=== PATIENT | male | born 1965 | race Caucasian/White ===

== ENCOUNTER 2018-01-28 15:39 | Emergency (ER) | payer BC ==
[2018-01-28] MEDS ORDERED: BUFFERED LIDOCAINE 10 ML SYRINGE SUBQ STA (15:59)
[2018-01-28] MEDS ORDERED: TETANUS/DIPHTHERIA/PERTUSSIS 0.5 ML SYRINGE IM ONE (15:59)
--- NOTE | 2018-01-28 16:01 | ED Physician Documentation ---
PD HPI UPPER EXT INJURY - Stated complaint Stated Complaint: DOG BITE - Chief complaint Chief Complaint: Laceration - History obtained from History obtained from: Patient - History of Present Illness Location: Other (Right-handed gentleman with unknown tetanus status was breaking up a fight between his own and another dog just prior to arrival near home in [place] and has multiple cuts and punctures over the left hand. No other injuries.) Review of Systems Constitutional: denies: Fever, Chills Cardiac: reports: Reviewed and negative Respiratory: reports: Reviewed and negative GI: reports: Reviewed and negative PD PAST MEDICAL HISTORY - Past Medical History Neuro: None Endocrine/Autoimmune: None - Past Surgical History Past Surgical History: No - Present Medications Home Medications: Ambulatory Orders Medication Instructions Recorded Confirmed FLUoxetine [PROzac] 10 mg 10/05/16 Mometasone Furoate [Nasonex] 17 gm NS DAILY 10/05/16 10/05/16 Amox/Clav 875/125 [Augmentin] 1 each PO Q12H #14 tablet 01/28/18 Levothyroxine [Synthroid] 20 mcg PO QDAC 01/28/18 01/28/18 - Allergies Allergies/Adverse Reactions: Allergies Allergy/AdvReac Type Severity Reaction Status Date / Time No Known Drug Allergies Allergy Verified 01/28/18 15:48 - Social History Does the pt smoke?: No Smoking Status: Never smoker - Immunizations Immunizations are current?: Yes PD ED PE NORMAL - Vitals Vital signs reviewed: Yes - General General: Alert and oriented X 3, No acute distress - Extremities Extremities: Other (There is a 2 cm laceration on the ulnar side of the dorsal hand proximal to the fifth MCP and another smaller one just distal that. There are multiple punctures about the left ring finger. There is a 1-1/2 cm laceration over the dorsum of the left middle finger at the level of the PIP and there is a little lac near the medial nailbed of the 4th finger.) - Neuro Neuro: Alert and oriented X 3, Normal speech Results - Vitals Vitals: Vital Signs - 24 hr 01/28/18 15:44 Temperature 36.8 C Heart Rate 72 Respiratory 12 Rate Blood Pressure 135/67 H O2 Saturation 99 Oxygen O2 Source Room air Procedures - Laceration (location) L hand Length in cm: 3 Wound type: Other (1 1cm lac in the middle finger, NVI and 1 2cm lac prox to 5th MCP dorsal hand) Neurovascular status: Sensory intact, Motor intact, Vascular intact Tendon involvement: Tendon intact Anesthesia: Lidocaine 1% Wound Preparation: Hibiclens, Irrigated copiously NS Skin layer closure: Nylon, Size #-0 - enter number (4-0), Sutures - enter # (5, 2 in the middle finger and 3 in the dorsal hand) Other: Tetanus booster given Complexity: Simple Departure - Departure Disposition: 01 Home, Self Care Clinical Impression: Dog bite, hand Qualifiers: Encounter type: initial encounter Laterality: left Qualified Code(s): S61.452A - Open bite of left hand, initial encounter; W54.0XXA - Bitten by dog, initial encounter; W54.0XXA - Bitten by dog, initial encounter Record reviewed to determine appropriate education?: Yes Instructions: ED Laceration Hand Prescriptions: Amox/Clav 875/125 [Augmentin] 1 each PO Q12H #14 tablet Comments: Come back for any signs of infection which would include: Redness, swelling, drainage, increased pain, or fevers. Follow-up with your physician in 14 days for suture removal. Your blood pressure was elevated today on check into the emergency department. This does not mean that you have hypertension, it is a common phenomenon to come to the emergency department and have elevated blood pressure. I recommend that you see your primary care physician within the week to have it rechecked when you are feeling better.
[2018-01-28] MEDS ORDERED: AMOX/CLAV 875 MG/125 MG TABLET PO STA (16:26)
--- NOTE | 2018-01-28 16:45 | XRAY Report ---
EXAM: LEFT HAND RADIOGRAPHY EXAM DATE: 01/28/2018 04:38 PM. CLINICAL HISTORY: Dog bite to left hand. Lacerations and pain to fourth digit. COMPARISON: None. TECHNIQUE: 3 views. 4 films. FINDINGS: Bones: Normal. No fractures or bone lesions. Joints: Normal. No subluxations. Soft Tissues: Normal. No soft tissue swelling. No radiopaque foreign body. IMPRESSION: Normal left hand radiography. [facility] Referring Provider Line: [phone] SITE ID: [id number]
[2018-01-28 17:12] VITALS: BP 144/73
== END 2018-01-28 17:11 | disposition home or self-care (01) ==
LOC: ED 15:39
DX: S61.452A Open bite of left hand, initial encounter (principal); S61.253A Open bite of left middle finger without damage to nail, initial encounter; W54.0XXA Bitten by dog, initial encounter; Y92.009 Unspecified place in unspecified non-institutional (private) residence as the place of occurrence of the external cause; Z23 Encounter for immunization; R03.0 Elevated blood-pressure reading, without diagnosis of hypertension
CPT/HCPCS: 12002; 73130; 90471; 90715; 99283; A9270

== ENCOUNTER 2018-08-31 13:03 | Outpatient (CLI) | payer BC ==
--- NOTE | 2018-09-02 09:50 | XRAY Report ---
Reason: DYSPHAGIA Procedure Date: 08/31/2018 Accession Number: [id number] / [id number] Procedure: FL - Modified Barium Swallow W/SP CPT Code: FULL RESULT: EXAM: MODIFIED BARIUM SWALLOW EXAM DATE: 08/31/2018 01:45 PM. CLINICAL HISTORY: Dysphagia. COMPARISON: None. TECHNIQUE: Under the direction of speech pathology, patient swallowed various consistencies of barium under lateral fluoroscopic observation of the neck. Fluoroscopy Time: 33 seconds. Number of Images: 23. FINDINGS: Swallowing Mechanism: Normal oral phase and swallowing reflex. Airway Protection: Normal epiglottic motion. No episodes of tracheal penetration or aspiration with all consistencies of barium. Pharynx: Normal. No significant vallecular or piriform sinus contrast pooling. Other: None. IMPRESSION: Normal modified barium swallow. No aspiration identified. [facility]
== END 2018-08-31 13:04 | disposition home or self-care (01) ==
LOC: DI 13:03
PROVIDERS: ATTEND Neurological Surgery
DX: R13.10 Dysphagia, unspecified (principal)
CPT/HCPCS: 74230

== ENCOUNTER 2018-12-17 04:49 | Outpatient (CLI) | payer BC ==
--- NOTE | 2018-12-17 05:40 | Ultrasound Report ---
Reason: R INGUINAL HERNIA, REDUCABLE Procedure Date: 12/17/2018 Accession Number: [id number] / [id number] Procedure: US - Pelvic Limited or F/U CPT Code: FULL RESULT: EXAM: INGUINAL ULTRASOUND EXAM DATE: 12/17/2018 05:06 AM. CLINICAL HISTORY: R INGUINAL HERNIA, REDUCABLE. COMPARISON: None. TECHNIQUE: Real-time sonographic imaging of the inguinal canals and vascular structures, including color-flow, was performed by the assistant at surgery. Multiple benefits representative static images were saved for review. FINDINGS: Hernia: Fat-containing right inguinal hernia, with the hernia neck measuring 1.7 cm. No bowel herniation identified. Hernia is seen during Valsalva, and reduces post-Valsalva. Soft Tissues: Normal. No fluid collections or adenopathy. Other: None. IMPRESSION: Fat-containing right inguinal hernia. No evidence of bowel herniation. [facility]
== END 2018-12-17 04:50 | disposition home or self-care (01) ==
LOC: DI 04:49
PROVIDERS: ATTEND Family Medicine
DX: K40.90 Unilateral inguinal hernia, without obstruction or gangrene, not specified as recurrent (principal)
CPT/HCPCS: 76857

== ENCOUNTER 2019-01-17 11:56 | Day surgery (SDC) | payer BC ==
[~2019-01-17 11:56] MED LIST: BUPIVACAINE 0.5% PF 30 ML VIAL ONE
[2019-01-17] MEDS ORDERED: ceFAZolin 2 GM/50 ML 2 GM/50 ML BAG IV ONE (12:06)
[2019-01-17] MEDS ORDERED: LACTATED RINGERS 1,000 ML IV ONE ×2 (12:08→13:56)
--- NOTE | 2019-01-17 12:12 | ANESTHESIA ---
Pre-Anesthesia VS, & Labs - Diagnosis R inguinal hernia - Procedure R laparoscopic inguinal hernia repair, possible open Height 5 ft 9 in Body Mass Index 28.0 Height 5 ft 9 in Body Mass Index 28.0 - NPO >8 hours Home Medications and Allergies Home Medications: Ambulatory Orders Albuterol Sulfate [Proair Hfa Inhaler] 1 - 2 puffs INH Q4H PRN 01/05/19 Beclomethasone Dipropionate [Qvar Redihaler (40 mcg)] 2 puffs IH BID 01/05/19 Cyclobenzaprine [Flexeril] 10 mg PO TID PRN 01/05/19 LORazepam [Ativan] 0.5 mg PO ONCE PRN 01/05/19 Liothyronine [Cytomel] 5 mcg PO QDAC 01/05/19 Sildenafil Citrate [Viagra] 100 mg PO ONCE PRN 01/05/19 FLUoxetine [PROzac] 20 mg PO DAILY 10/05/16 Mometasone Furoate [Nasonex] 1 spray NS BID PRN 10/05/16 Albuterol Sulfate [Proair Hfa Inhaler] 1 - 2 puffs INH Q4H PRN 01/05/19 Beclomethasone Dipropionate [Qvar Redihaler (40 mcg)] 2 puffs IH BID 01/05/19 Cyclobenzaprine [Flexeril] 10 mg PO TID PRN 01/05/19 LORazepam [Ativan] 0.5 mg PO ONCE PRN 01/05/19 Liothyronine [Cytomel] 5 mcg PO QDAC 01/05/19 Sildenafil Citrate [Viagra] 100 mg PO ONCE PRN 01/05/19 Allergies/Adverse Reactions: Allergies Allergy/AdvReac Type Severity Reaction Status Date / Time latex Allergy swelling Verified 01/05/19 11:57 Anes History & Medical History - Anesthetic History Anesthesia Complications: reports: No previous complications Family history of Anesthesia Complications: Denies Family history of Malignant Hyperthermia: Denies - Medical History Cardiovascular: reports: None Pulmonary: reports: Asthma, Sleep apnea, CPAP use Gastrointestinal: reports: Ulcers Urinary: reports: Kidney stones Musculoskeletal: reports: Chronic back pain Endocrine/Autoimmune: reports: HyPOthyroidism Skin: reports: None Smoking Status: Never smoker - Surgical History Orthopedic: Rotator cuff repair, Arthroscopic surgery, Spine surgery Exam General: Alert, Oriented x3, Cooperative Dental: WNL Mouth Openin Fingerbreadth Neck Mobility: Reduced Mallampati classification: II Thyromental Distance: 4-6 cm Respiratory: Lungs clear, Normal breath sounds, No respiratory distress, No accessory muscle use Cardiovascular: Regular rate Neurological: Normal speech Mental/Cognitive Status: Alert/Oriented X3 Cognitive Status: Within normal limits Plan Anesthesia Type: General Consent for Procedure(s) Verified and Reviewed: Yes Code Status: Attempt Resuscitation ASA classification: 2-Mild systemic disease Is this case an emergency?: No
[2019-01-17] MEDS ORDERED: ePHEDrine 50 MG/ML VIAL IVP ONE (12:15)
[2019-01-17] MEDS ORDERED: ONDANSETRON 4 MG/2 ML VIAL IVP ONE (12:15)
[2019-01-17] MEDS ORDERED: LIDOCAINE-MPF 2% 5 ML VIAL IM ONE (12:15)
[2019-01-17] MEDS ORDERED: MIDAZOLAM 2 MG/2 ML VIAL IVP ONE (12:15)
[2019-01-17] MEDS ORDERED: DEXAMETHASONE 4 MG/ML VIAL IVP ONE (12:15)
[2019-01-17] MEDS ORDERED: fentaNYL 100 MCG/2 ML VIAL IVP ONE (12:15)
[2019-01-17] MEDS ORDERED: KETOROLAC 30 MG/ML VIAL IVP ONE (12:15)
[2019-01-17] MEDS ORDERED: PROPOFOL 200 MG/20 ML VIAL IVP ONE (12:15)
[2019-01-17] MEDS ORDERED: GLYCOPYRROLATE 1 MG/5 ML VIAL IVP ONE (12:15)
[2019-01-17] MEDS ORDERED: NEOSTIGMINE 1 MG/1 ML 10 ML MDV IVP ONE (12:15)
[2019-01-17] MEDS ORDERED: BUPIVACAINE 0.5% PF 30 ML VIAL SUBQ ONE ×2 (13:18→14:17)
[2019-01-17] MEDS ORDERED: ONDANSETRON 4 MG/2 ML VIAL IVP PRN (14:35)
[2019-01-17] MEDS ORDERED: HYDROmorphone 0.5 MG/0.5 ML SYRINGE IVP PRN (14:35)
[2019-01-17] MEDS ORDERED: HYDROcod/ACETAM 5/325 MG TABLET PO PRN (14:35)
--- NOTE | 2019-01-17 14:39 | OPERATIVE REPORT ---
Operative Report - General Procedure Date: 01/17/19 Planned Procedure: Laparoscopic right inguinal herniorrhaphy possible open right inguinal herniorrhaphy Pre-Op Diagnosis: Right inguinal hernia Procedure Performed: Laparoscopic (TEP) right inguinal herniorrhaphy and removal of right inguinal canal cord lipoma Post Op Diagnosis: Right indirect inguinal hernia and cord lipoma - Procedure Note Primary Surgeon: Jeffy Anthony MD Anesthesia Provider: Olvin Gallo CRNA and Steve Oquendo CRNA Anesthesia Technique: General ET tube, Local (30 mL of half percent Marcaine) IV Fluids (mL): 1,200 Estimated Blood Loss (mL): 20 Drain/Tube Type: Other (None.) Complications: None. - Other Other Information/Narrative: OPERATIVE DESCRIPTION/REPORT: After verbal and written informed consent was obtained detailing the risks of infection, bleeding requiring transfusion with its risks, nerve injury, and , and after I met with the patient confirming the surgery and the site of the surgery, the patient was brought to the operative suite and placed supine on the operating table. Great care was taken to avoid pressure points to prevent pressure necrosis or nerve injury. Monitoring devices were applied along with TEDs and pneumatic compressive stockings (to prevent DVT). The patient received preoperative antibiotics for surgical prophylaxis. Olvin Gallo CRNA and Steve Oquendo CRNA sedated and induced general anesthesia and provided anesthesia care for the entirety of the case (Steve Aquino completed). The patient was prepped and draped in the usual sterile manner. With the patient draped my initials were clearly visible. A "time in" then confirmed that the patient was identified with 3 identifiers (name, date and medical record number), the history and physical was in the chart, the signed consent confirming the procedure was in the chart, the patient was in the correct position, the aforementioned prophylactic measures were in place or given, we had the correct personnel and equipment to complete the procedure and that anesthesia, surgery and nursing were given an opportunity to express any concerns. With the agreement of everyone in the room, we proceeded with the operation. A transverse skin incision was made below and to the right of the umbilicus to a length of approximately 3 cm. The incision was carried through the subcutaneous tissue. Bleeders were cauterized. The right rectus sheath was identified and incised lateral to the midline. The preperitoneal space was then developed following insertion of a Spacemaker balloon, which was inflated under direct vision. The balloon would not inflate fully on the right hand side and in order to get the right side of the balloon to inflate additional pressure was used to the point where the balloon popped but it still did not dissect the right hand side. Following removal of the Spacemaker balloon, a #10 trocar was placed in the preperitoneal space and the preperitoneal space was insufflated with CO2 to a steady state pressure of 15 mmHg. A 5 mm 30 degree laparoscope was inserted in the preperitoneal space. Two #5 trocars were placed in the lower midline 5 cm and 10 cm away from the umbilical incision under direct vision and without incident. Landmarks including symphysis pubis, right and left Kota ligaments and right and left inferior epigastric vessels were identified. Dissection was then continued lateral to the transverse abdominis muscle bilaterally. The right side was addressed first. The internal ring was then explored for the presence of the indirect hernia sac and a very large cord lipoma and a relatively small indirect hernia sac were found. Exploration of the medial space showed no defect consistent with a direct hernia. A Covidien ProGrip right inguinal mesh (reference# [id number], lot# [id number], used by date 2021-07-01) was placed in the preperitoneal space and unrolled to cover the internal ring as well as the direct space. Great care was taken to ensure that the peritoneumas well as the large cord lipoma was swept down so that it could not "creep" behind the mesh and result in a recurrent hernia. The left side was then addressed. No direct nor indirect hernia was seen. 30 mL of 1/2% Marcaine was injected at all 3 port sites both deep and superficially under direct vision. The preperitoneal space was then deflated and during the deflation the mesh was watched to ensure that it was sandwiched nicely in place and did not change position. All trocars were withdrawn. The defect in the rectus sheath was closed with a running 0 Vicryl suture . The skin incisions were closed with subcuticular 4-0 Monocryl suture. The prep was washed off and Dermabond was applied at all the incisions. At this point a time out was performed that confirmed that all the counts were correct, the procedure that was performed, the blood loss, the IV fluids administered, and the patients condition. The patient's scrotum was evaluated to ensure that the testicles were well seated within the scrotum and that there was no swelling. The prep was washed off and Benzoin and Steristrips were applied. Having tolerated the procedure well, the patient was subsequently extubated and taken to recovery room in good and stable condition. [employer] disclaimer: This document was created in part using voice recognition technology. Because of the inherent limitations of the system ([employer] Dictate user manual states that the licensee understands that speech recognition is a statistical process and that recognition errors are inherent in the process), occasional same sounding word substitutions and grammatical errors do occur and persist despite proofreading. Please read this document for context.
[2019-01-17] MEDS ORDERED: HYDROcod/ACETAM 5/325 MG TABLET ONE (15:32)
[2019-01-17 16:47] VITALS: BP 123/78
== END 2019-01-17 11:57 | disposition home or self-care (01) ==
LOC: SDS 11:56
PROVIDERS: ATTEND Surgery
PROC: 0VBF4ZZ Excision of Right Spermatic Cord, Percutaneous Endoscopic Approach (ICD-10-PCS; 2019-01-17)
PROC: 0YU54JZ Supplement Right Inguinal Region with Synthetic Substitute, Percutaneous Endoscopic Approach (ICD-10-PCS; principal; 2019-01-17 12:43)
DX: K40.90 Unilateral inguinal hernia, without obstruction or gangrene, not specified as recurrent (principal); J45.909 Unspecified asthma, uncomplicated; G47.30 Sleep apnea, unspecified; E03.9 Hypothyroidism, unspecified; F32.9 Major depressive disorder, single episode, unspecified; F41.0 Panic disorder [episodic paroxysmal anxiety]; Z79.51 Long term (current) use of inhaled steroids
CPT/HCPCS: 49650; A9270; C1781; J0690; J7120

== ENCOUNTER 2019-04-12 10:58 | Emergency (ER) | payer BC ==
[2019-04-12 11:08] VITALS: BP 139/89
[2019-04-12] MEDS ORDERED: IPRATROPIUM/ALBUTEROL 3 ML NEB INH STA (11:36)
--- NOTE | 2019-04-12 12:02 | ED Physician Documentation ---
PD HPI DYSPNEA - Stated complaint Stated Complaint: SOA - Chief complaint Chief Complaint: Resp - History obtained from History obtained from: Patient - History of Present Illness Timing - onset: Yesterday Timing - onset during: Light activity Timing - duration: Hours (since last night) Timing - details: Abrupt onset (after mowing the lawn), Still present, Constant Inciting event(s): Exposure (ie smoke) (mowing the lawn) Improved by: Rest Worsened by: Coughing Associated symptoms: Cough, Wheezing. No: Fever, Hemoptysis, Chest pain / discomfort, Palpitations, Diaphoresis, Bilateral edema, Unilateral edema Similar symptoms before: Diagnosis (asthma) Recently seen: Not recently seen Review of Systems Ten Systems: 10 systems reviewed and negative Constitutional: denies: Fever, Chills Nose: denies: Congestion Throat: denies: Sore throat Cardiac: denies: Chest pain / pressure Respiratory: reports: Dyspnea, Cough, Wheezing Skin: reports: Reviewed and negative Musculoskeletal: reports: Reviewed and negative Neurologic: reports: Reviewed and negative PD PAST MEDICAL HISTORY - Past Medical History Past Medical History: Yes Cardiovascular: None Respiratory: Asthma, Sleep apnea, CPAP use Endocrine/Autoimmune: HyPOthyroidism GI: Ulcers : Kidney stones HEENT: Chronic vision loss Psych: Anxiety, Panic attacks, ADD/ADHD Musculoskeletal: Chronic back pain Derm: None - Past Surgical History Past Surgical History: No Ortho: Rotator cuff repair, Arthroscopic surgery, Spine surgery - Present Medications Home Medications: Ambulatory Orders Medication Instructions Recorded Confirmed FLUoxetine [PROzac] 20 mg PO DAILY 10/05/16 01/17/19 Mometasone Furoate [Nasonex] 1 spray NS BID PRN 10/05/16 01/05/19 Albuterol Sulfate [Proair Hfa 1 - 2 puffs INH Q4H PRN 01/05/19 01/05/19 Inhaler] Beclomethasone Dipropionate [Qvar 2 puffs IH BID 01/05/19 01/05/19 Redihaler (40 mcg)] Cyclobenzaprine [Flexeril] 10 mg PO TID PRN 01/05/19 01/17/19 LORazepam [Ativan] 0.5 mg PO ONCE PRN 01/05/19 01/17/19 Liothyronine [Cytomel] 5 mcg PO QDAC 01/05/19 01/17/19 Sildenafil Citrate [Viagra] 100 mg PO ONCE PRN 01/05/19 01/17/19 Benzonatate [Tessalon Perle] 100 - 200 mg PO TID PRN #30 capsule 04/12/19 - Allergies Allergies/Adverse Reactions: Allergies Allergy/AdvReac Type Severity Reaction Status Date / Time latex Allergy swelling Verified 04/12/19 11:07 - Social History Does the pt smoke?: No Smoking Status: Never smoker Does the pt drink ETOH?: Yes Does the pt have substance abuse?: No - Immunizations Immunizations are current?: Yes Immunizations: TDAP >10years/unknown PD ED PE NORMAL - Vitals Vital signs reviewed: Yes - General General: Alert and oriented X 3, No acute distress - HEENT HEENT: Atraumatic - Neck Neck: Supple, no meningeal sign, No JVD - Cardiac Cardiac: RRR, No murmur, No gallop, No rub - Respiratory Respiratory: No respiratory distress, Clear bilaterally - Abdomen Abdomen: Soft, Non distended - Male Male : Deferred - Rectal Rectal: Deferred - Derm Derm: Normal color, Warm and dry, No rash - Extremities Extremities: No edema - Neuro Neuro: Alert and oriented X 3 Eye Opening: Spontaneous Motor: Obeys Commands Verbal: Oriented GCS Score: 15 - Psych Psych: Normal mood, Normal affect Results - Vitals Vitals: Vital Signs - 24 hr 04/12/19 04/12/19 11:05 11:48 Temperature 36 C L Heart Rate 86 90 Respiratory 22 16 Rate Blood Pressure 139/89 H O2 Saturation 98 Oxygen O2 Source Room air PD MEDICAL DECISION MAKING - ED course Complexity details: considered differential, d/w patient, d/w family ED course: ddx- asthma, bronchitis, uri, allergic reaction, pneumonia, uri 53 y/o M with reported hx of asthma states worsening cough and wheezing after mowing lawn yesterday. took inhaler without relief. Given neb prior to my eval here in the ED and now feels better and has clear breath sounds. Stable vitals. Likely asthma exacerbation. Still has mild cough - given tessalon perles for cough. Pt has inhaler for home. One dose of dexamethasone given here. Departure - Departure Disposition: 01 Home, Self Care Clinical Impression: Cough variant asthma Condition: Stable Record reviewed to determine appropriate education?: Yes Instructions: Asthma Dc Follow-Up: Margarita Moody MD [Primary Care Provider] - As Needed Prescriptions: Benzonatate [Tessalon Perle] 100 - 200 mg PO TID PRN #30 capsule PRN Reason: Cough Comments: Take tessalon perles for cough. Use your inhaler as needed. Return to the ED if difficulty breathing or new concerning symptoms.
[2019-04-12] MEDS ORDERED: dexAMETHasone 4 MG TABLET PO STA (12:21)
[2019-04-12] MEDS ORDERED: CHERRY SYRUP 10 ML UDC PO ONE (12:26)
[2019-04-12] MEDS ORDERED: DEXAMETHASONE 10 MG/ML VIAL PO STA (12:26)
== END 2019-04-12 12:49 | disposition home or self-care (01) ==
LOC: ED 10:58
DX: J45.991 Cough variant asthma (principal); G47.30 Sleep apnea, unspecified
CPT/HCPCS: 94640; 99283; A9270; J8540

== ENCOUNTER 2019-04-18 14:18 | Outpatient (CLI) | payer BC ==
--- NOTE | 2019-04-18 14:39 | XRAY Report ---
Reason: FEVER,COUGHING,RHONCHI,CHEST PAIN,WHEEZING Procedure Date: 04/18/2019 Accession Number: [id number] / [id number] Procedure: XR - Chest 2 View X-Ray CPT Code: 75684 FULL RESULT: EXAM: CHEST RADIOGRAPHY EXAM DATE: 04/18/2019 02:26 PM. CLINICAL HISTORY: Fever and cough. COMPARISON: None. TECHNIQUE: 2 views. FINDINGS: Lungs/Pleura: No focal opacities evident. No pleural effusion. No pneumothorax. Normal volumes. Mediastinum: Heart and mediastinal contours are unremarkable. Other: Spinal fusion hardware is seen in the cervical spine region. IMPRESSION: No acute cardiopulmonary abnormality demonstrated. [facility]
== END 2019-04-18 14:19 | disposition home or self-care (01) ==
LOC: DI 14:18
PROVIDERS: ATTEND Naturopath
DX: R05 Cough (principal); R50.9 Fever, unspecified; R09.89 Other specified symptoms and signs involving the circulatory and respiratory systems; R07.9 Chest pain, unspecified; R06.2 Wheezing; J45.909 Unspecified asthma, uncomplicated
CPT/HCPCS: 71046

== ENCOUNTER 2019-10-16 13:30 | Outpatient (CLI) | payer BC ==
[2019-10-17 15:02] VITALS: BP 137/86
--- NOTE | 2019-10-17 15:02 | SLEEP CARE CONSULTATION ---
Information from patient questionnaire entered by Keila Ceja. I have reviewed and concur with the information entered by Keila Ceja. This document represents the service I personally performed and the decisions made by me, Goldie Eng MD, [facility]. History of Present Illness Reason for Visit: New patient, Previously diagnosed sleep apnea, sleep apnea on CPAP therapy Chief Complaint: reports: Other (yearly check up) Duration of Symptoms: many years Usual bedtime: 9 pm Time it takes to fall asleep: 60 mins Snores at night: Yes Observed to quit breathing while asleep: Yes Number of times waking at night: 3 with machine Reasons for waking at night: reports: Choking, Pain, Bathroom Toss, Turn, or Twitch while sleeping: Yes Recalls having dreams: No Usually gets out of bed at: 7 am Feels refreshed in the morning: No (with machine, yes) Morning headache: Yes (with out machine) Sleepy or fatigued during the day: Yes (with out machine) Ever fallen asleep while driving: Yes Takes day naps: Yes Dreams during day naps: No Prior sleep studies: Yes Year and Where: 2013? [facility] Additional HPI information: I had the pleasure of seeing Mr. Andrade today regarding obstructive sleep apnea- hypopnea. As you know, he is a 54 year old gentleman who was diagnosed with the sleep-disordered breathing at [facility] in Dec 2012. The AHI was 17 and jairo oxygen saturation was 85%. He was prescribed a CPAP device set at 5 15 cmH2O. He uses every night and all night. The compliance data show usage in 26 out of the past 30 nights, averaging 5.8 hours a night. The > 4 hour compliance rate for the past 30 days is 70%. The residual AHI is 0.7 and average air leak is 0.1 L/minute. He wears nasal pillows. He gets his supplies from [facility]. He finds the treatment very beneficial. 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 Patient is Single and lives in [place]. Have you smoked in the past 12 months: No Alcohol use: Yes Alcohol amount and frequency: 1-2 drinks 4 times a week Family History Family history of sleep disordered breathing: Yes Allergies and Home Medications Drug allergies reviewed: Yes Home medication list reviewed: Yes Allergy and home medication list: Meds: sildenafil, Nasonex, Cytomel, lorazepam, fluoxetine, cyclobenzaprine, Q- Hammad, and albuterol inhaler Allergies: Latex Review of Systems Weight gain over past 5 years: 25 Weight loss over past 5 years: 20 Cardiovascular: denies: high blood pressure, palpitations, chest pain, irregular heart rate or pulse, leg or foot swelling, have to sleep sitting up, other Respiratory: reports: chronic cough Gastrointestinal: reports: difficulty swallowing (eating turkey) Urinary: denies: incontinence, frequency, urgency, impotence, other Neurological: reports: headaches, fainting or unconsciousness Psychiatric: reports: Attention Deficit Hyperactivity, anxiety, depression Ear/Nose/Throat: reports: nasal congestion, sinus problems, hoarseness, injury to nose Endocrine: reports: sluggishness, too hot or cold Musculoskeletal: reports: joint pain, neck pain, back pain, joint swelling, muscle pain or cramping, mobility problems Immunologic: reports: sneezing, rash, itching, allergies to food or environment Physical Exam Vital signs obtained and entered by: Dr. Eng Blood Pressure: 137/86 Cuff size: regular Heart Rate: 86 O2 Saturation: 97 Height: 5 ft 8 in Weight: 205 lb Body Mass Index: 31.1 BMI Classification: Obesity Class 1 Neck circumference: 16 Mood/affect: normal HEENT: No craniofacial malformation Nostrils: patent to airflow Turbinates: normal Septum: midline Mouth and throat: normal Soft palate: normal Hard palate: normal Uvula: normal Uvula visualization: 100% Mallampati Class I Tongue: normal in size Tonsils: small Chin and jaw: normal size and position Neck: normal w/o lymphadenopathy or thyromegaly Heart: regular rate and rhythm Lungs: clear bilaterally Abdomen: soft, non-tender Extremities: no edema or clubbing Neurologic: intact, no focal deficits Impression and Plan IMPRESSION: 1. Obstructive Sleep Apnea-Hypopnea Syndrome, moderate, as previously diagnosed. The patient has had good treatment compliance. The current pressure setting appears effective and comfortable. The patient experiences improvement on the treatment. Because the CPAP is now older than the useful life of 5 years, I will order the patient a new one and make it an autoCPAP set between 5 and 15 cmH2O. Plan: 1. Prescription made for an autoCPAP, heated humidifier, and related supplies. 2. Try newer masks/nasal pillows, e.g. RespirCornerBlues DreamWear nasal cushion/pillows/Wisp nasal mask. 3. Attempt to lose weight. 4. Return for follow up after one month on the new machine. I spent 100% of this visit face to face with the patient with greater than 50% of this was spent time counseling the patient and coordination of care.
== END 2019-10-16 13:31 | disposition home or self-care (01) ==
LOC: SC 13:30
PROVIDERS: ATTEND Internal Medicine Pulmonary Disease
DX: G47.33 Obstructive sleep apnea (adult) (pediatric) (principal); E66.9 Obesity, unspecified; Z68.31 Body mass index [BMI] 31.0-31.9, adult
CPT/HCPCS: 99203; 99212

== ENCOUNTER 2021-02-07 14:07 | Outpatient (CLI) | payer BC | END 2021-02-07 14:08 | disposition home or self-care (01) | LOC: COV 14:07 | PROVIDERS: ATTEND Neurological Surgery | DX: Z01.812 Encounter for preprocedural laboratory examination (principal); Z20.822 Contact with and (suspected) exposure to COVID-19 ==

== ENCOUNTER 2021-03-03 09:28 | Outpatient (CLI) | payer BC ==
--- NOTE | 2021-03-04 23:23 | SLEEP CARE CONSULTATION ---
Information from patient questionnaire entered by Tan Black. I have reviewed and concur with the information entered by Tan Black. This document represents the service I personally performed and the decisions made by me, Goldie Eng MD, [facility]. History of Present Illness Service Date and Time: 03/03/2021927 Previous diagnosis: Moderate, Obstructive Sleep Apnea-Hypopnea Syndrome AHI: 17 Reason for follow up: annual (Last seen 10/2019) Equipment type: CPAP Equipment obtained from: [employer] Mask style: Nasal pillows Prior sleep studies: Yes Year and Where: 2012 [facility] HPI additional information: HPI: Mr. Andrade was diagnosed to have moderate obstructive sleep apnea-hypopnea syndrome and returns today for follow up of CPAP therapy. The patient purchased the device from [employer] who is unhappy with. He wears ResMed P30i nasal pillows. He uses the device nightly and all through the night. The compliance report shows that he uses the device 113 nights out of the past 180 nights, averaging 6.2 hours a night. The > 4 hour compliance rate for the past 180 days is 53% (the days he did not use the ResMed AirSense 10, he used his other machines). He complains of the nasal pillows hurting his nose. No particular problem with the device such as soreness on the face, dry nose, epistaxis, nasal congestion or headache. He thinks that the pressure of 5 - 15 cmH2O is comfortable. On the CPAP therapy he notices improvement in his sleep quality, and that he wakes up feeling fresher in the morning and more awake/alert during the day. [place] Sleepiness Scale score is 8. The average residual AHI is 0.6; and average air leak is 8.6 minutes a night. The 90th percentile pressure is 11.7 cmH2O. CPAP Compliance Data - Data Reviewed with Patient Average duration of nightly device use: 6 h 9 min Compliance rate %: 53 Current pressure setting (cmH2O): 5-15 Average residual AHI: 0.6 Subjective Missed days of use due to: reports: illness, travel Patient concerns: reports: mask discomfort (facial) Current pressure setting perceived as: comfortable Initial [place] Sleepiness Scale score: 11 (in 2019) Current [place] Sleepiness Scale score: 8 Allergies and Home Medications Drug allergies reviewed: Yes Home medication list reviewed: Yes Review of Systems Review of systems same as previous: Yes Physical Exam Height: 5 ft 8 in Weight: 200 lb Body Mass Index: 30.4 BMI Classification: Obese Impression and Plan IMPRESSION: 1. Obstructive Sleep Apnea-Hypopnea Syndrome, moderate (AHI was 17 at [facility] in 2012), with the patient continuing to do well on nasal CPAP therapy. He has excellent compliance and significant clinical benefits. The current pressure appears effective and comfortable. Overall, he is very satisfied with treatment and plans to continue with it long-term. No adjustment is necessary today. PLAN: 1. Continue with autoCPAP set at 5 - 15 cm H2O. 2. Prescription made for supplies so that he may switch durable medical supplier. 3. Try ResMed N30i mask and Respironics DreamWear nasal cushion mask 4. Try to lose weight. 5. Return in one year for follow up or earlier if there is any problem with the treatment. Counseling Topics: Weight control Visit Type: In Office Time Spent with Patient (minutes): 15 Provider Statement: I spent 100% of the Face to Face Visit with the patient with greater than 50% spent counseling the patient and coordination of care.
== END 2021-03-03 09:29 | disposition home or self-care (01) ==
LOC: SC 09:28
PROVIDERS: ATTEND Internal Medicine Pulmonary Disease
DX: G47.33 Obstructive sleep apnea (adult) (pediatric) (principal); E66.9 Obesity, unspecified; Z68.30 Body mass index [BMI] 30.0-30.9, adult
CPT/HCPCS: 99212

== ENCOUNTER 2023-05-26 15:32 | Outpatient (CLI) | payer BC ==
--- NOTE | 2023-05-26 20:24 | XRAY Report ---
PROCEDURE: Cervical Spine 2 View INDICATIONS: NECK PAIN TECHNIQUE: 4 views of the cervical spine were acquired. COMPARISON: None. FINDINGS: Bones: Postsurgical changes are seen from anterior cervical disc fusion at C5-C7 and disc replacemen t at C4-5. Joint space narrowing and degenerative endplate changes are seen at C3-4. There is mild in tervertebral joint and facet hypertrophy. No acute osseous fracture. The lateral masses of C1 appear intact on the odontoid view. No suspicious bony lesions. Soft tissues: No prevertebral soft tissue swelling. Surgical clips are seen in the left neck. IMPRESSION: Postsurgical changes at C3-4 through C6-7. No acute osseous abnormality. If symptoms per sist or there is continued clinical concern, further evaluation with MRI or CT may be helpful. Reviewed by: Nahum Ramirez MD on 05/26/2023 8:23 PM PDT Approved by: Nahum Ramirez MD on 05/26/2023 8:23 PM PDT Station ID: [id number]
--- NOTE | 2023-05-26 20:25 | XRAY Report ---
PROCEDURE: Thoracic Spine 2 View INDICATIONS: BACK PAIN TECHNIQUE: 2 views of the thoracic spine were acquired. COMPARISON: None. FINDINGS: Bones: No acute fractures or dislocations. Postsurgical changes are seen in the included lower cerv ical spine. No suspicious bony lesions. 12 pairs of ribs are noted, and appear intact where visualiz ed. Soft tissues: No paravertebral stripe thickening. IMPRESSION: No acute osseous abnormality. If symptoms persist or there is continued clinical concern, further melba luation with MRI or CT may be helpful. Reviewed by: Nahum Ramirez MD on 05/26/2023 8:24 PM PDT Approved by: Nahum Ramirez MD on 05/26/2023 8:24 PM PDT Station ID: [id number]
== END 2023-05-26 15:33 | disposition home or self-care (01) ==
LOC: DI.S 15:32
PROVIDERS: ATTEND Family Medicine
DX: M54.2 Cervicalgia (principal); R53.1 Weakness; R20.2 Paresthesia of skin; M54.6 Pain in thoracic spine

== ENCOUNTER 2023-12-10 11:57 | Outpatient (CLI) | payer BC ==
[2023-12-10 15:17] LABS: BASOPHILS # (AUTO) 0.1 10^3/uL (0.0-0.1); EOSINOPHILS # (AUTO) 0.1 10^3/uL (0.0-0.7); EOSINOPHILS % (AUTO) 2.7 %; HGB - HEMOGLOBIN 13.5 g/dL (14.0-18.0); LYMPHOCYTES # (AUTO) 1.2 10^3/uL (1.5-3.5); LYMPHOCYTES % (AUTO) 25.6 %; MEAN CORPUSCULAR HEMOGLOBIN 29.6 pg (27.0-31.0); MEAN CORPUSCULAR HGB CONC 32.9 g/dL (32.0-36.0); MEAN CORPUSCULAR VOLUME 89.9 fL (80.0-94.0); MEAN PLATELET VOLUME 11.6 fL (7.4-11.4); MONOCYTES # (AUTO) 0.5 10^3/uL (0.0-1.0); MONOCYTES % (AUTO) 10.6 %; NEUTROPHILS # (AUTO) 2.9 10^3/uL (1.5-6.6); NEUTROPHILS % (AUTO) 59.7 %; PLT - PLATELET COUNT 253 10^3/uL (130-450); RED BLOOD COUNT 4.56 10^6/uL (4.70-6.10); RED CELL DISTRIBUTION WIDTH 12.8 % (12.0-15.0); WHITE BLOOD COUNT 4.8 x10^3/uL (4.8-10.8)
[2023-12-10 15:20] LABS: BILIRUBIN,URINE NEGATIVE (NEGATIVE); GLUCOSE, URINE (UA) NEGATIVE (NEGATIVE); KETONES,URINE (UA) TRACE mg/dL (NEGATIVE); LEUKOCYTE ESTERASE, URINE NEGATIVE (NEGATIVE); NITRITE,URINE NEGATIVE (NEGATIVE); OCCULT BLOOD,URINE NEGATIVE (NEGATIVE); PROTEIN,URINE NEGATIVE (NEGATIVE); UROBILINOGEN,URINE 0.2 (NORMAL) E.U./dL (NORMAL)
[2023-12-10 15:27] LABS: CLARITY,URINE CLOUDY (CLEAR)
[2023-12-10 15:39] LABS: RBC,URINE None Seen /HPF (0-5); WBC,URINE 0-3 /HPF (0-3)
[2023-12-10 15:40] LABS: AMORPHOUS SEDIMENT,UR Marked /LPF; BACTERIA,URINE None Seen /HPF (None Seen); SQUAMOUS EPITHELIAL CELL,UR NONE SEEN (<= Few)
[2023-12-10 16:03] LABS: THYROID STIMULATING HORMONE 1.29 uIU/mL (0.34-5.60)
[2023-12-10 16:32] LABS: ALBUMIN 4.5 g/dL (3.2-5.5); ALBUMIN/GLOBULIN RATIO 2.1 (1.0-2.2); ALKALINE PHOSPHATASE 62 IU/L (42-121); ALT ALANINE AMINOTRANSFERASE 23 IU/L (10-60); AST ASPARTATE AMINOTRANSFERASE 22 IU/L (10-42); BILIRUBIN,TOTAL 0.5 mg/dL (0.2-1.0); BUN - BLOOD UREA NITROGEN 25 mg/dL (6-20); CALCIUM 9.6 mg/dL (8.5-10.3); CARBON DIOXIDE - CO2 25 mmol/L (21-32); CHLORIDE 107 mmol/L (101-111); CHOLESTEROL 152 mg/dL; CREATININE 0.8 mg/dL (0.6-1.3); GFR - MDRD 100 (>89); GLUCOSE 103 mg/dL (74-104); HDL CHOLESTEROL 77 mg/dL; LDL CHOLESTEROL,CALCULATED 62 mg/dL; LDL/HDL RATIO 0.8 (<3.6); POTASSIUM 4.3 mmol/L (3.5-4.5); SODIUM 138 mmol/L (135-145); TOTAL PROTEIN 6.6 g/dL (6.4-8.9); TRIGLYCERIDES 67 mg/dL (48-352); VLDL CHOLESTEROL 13 mg/dL
[2023-12-10 20:46] LABS: ESTIMATED AVERAGE GLUCOSE 103 mg/dL (70-100); HEMOGLOBIN A1c% 5.2 % (4.27-6.07)
[2023-12-13 14:08] LABS: VITAMIN D 25-HYDROXY 49.6 ng/mL (30.0-100.0)
[2023-12-15 17:09] LABS: FREE TESTOSTERONE(DIRECT) 12.6 pg/mL (7.2-24.0); SEX HORM BINDING GLOB SERUM 43.7 nmol/L (19.3-76.4)
== END 2023-12-10 11:58 | disposition home or self-care (01) ==
LOC: LAB.S 11:57
PROVIDERS: ATTEND Family Medicine
DX: E78.5 Hyperlipidemia, unspecified (principal); N40.1 Benign prostatic hyperplasia with lower urinary tract symptoms; E03.9 Hypothyroidism, unspecified; R53.83 Other fatigue; E55.9 Vitamin D deficiency, unspecified
CPT/HCPCS: 36415; 80053; 80061; 81001; 82306; 82626; 83036; 83090; 83721; 84270; 84402; 84403; 84439; 84443; 84480; 84481; 84482; 85025; 86141; 87086

== ENCOUNTER 2024-01-07 14:17 | Outpatient (CLI) | payer BC ==
--- NOTE | 2024-01-07 15:46 | XRAY Report ---
PROCEDURE: Hips w/Pelvis 2-3V BL INDICATIONS: HIP PAIN TECHNIQUE: 3 view(s) of the hip were acquired. COMPARISON: None. FINDINGS: Bones: No fractures or dislocations. Minimal bilateral hip DJD. No avascular necrosis of the femoral heads. No suspicious bony lesions. The visualized pelvic ring appears intact. Soft tissues: No suspicious soft tissue calcifications or masses. IMPRESSION: Minimal bilateral hip DJD. Reviewed by: Saturnino Comer MD on 01/07/2024 3:45 PM [facility] Approved by: Saturnino Comer MD on 01/07/2024 3:45 PM [facility] Station ID: [id number]
== END 2024-01-07 14:18 | disposition home or self-care (01) ==
LOC: DI.S 14:17
PROVIDERS: ATTEND Family Medicine
DX: M16.0 Bilateral primary osteoarthritis of hip (principal)

== ENCOUNTER 2024-02-02 15:02 | Outpatient (CLI) | payer BC ==
--- NOTE | 2024-02-02 15:28 | XRAY Report ---
PROCEDURE: Ankle 3+V LT INDICATIONS: INJURY TO LEFT ANKLE TECHNIQUE: 3 views of the ankle were acquired. COMPARISON: None. FINDINGS: Bones: No fractures or dislocations. Ankle mortise is normally aligned. No suspicious bony lesions . Soft tissues: No tibiotalar joint effusion. Achilles tendon appears normal. IMPRESSION: No acute bony abnormality. Reviewed by: Carlos Cuello MD on 02/02/2024 3:27 PM PDT Approved by: Carlos Cuello MD on 02/02/2024 3:27 PM PDT Station ID: [id number]
== END 2024-02-02 15:03 | disposition home or self-care (01) ==
LOC: DI.S 15:02
PROVIDERS: ATTEND Family Medicine
DX: S99.812A Other specified injuries of left ankle, initial encounter (principal); R22.42 Localized swelling, mass and lump, left lower limb

== ENCOUNTER 2024-02-09 10:32 | Outpatient (CLI) | payer BC ==
[2024-02-09 14:50] LABS: BASOPHILS # (AUTO) 0.1 10^3/uL (0.0-0.1); EOSINOPHILS # (AUTO) 0.1 10^3/uL (0.0-0.7); HCT - HEMATOCRIT 45.6 % (42.0-52.0); HGB - HEMOGLOBIN 14.8 g/dL (14.0-18.0); LYMPHOCYTES # (AUTO) 1.4 10^3/uL (1.5-3.5); LYMPHOCYTES % (AUTO) 23.6 %; MEAN CORPUSCULAR HEMOGLOBIN 29.5 pg (27.0-31.0); MEAN CORPUSCULAR HGB CONC 32.5 g/dL (32.0-36.0); MEAN CORPUSCULAR VOLUME 90.8 fL (80.0-94.0); MEAN PLATELET VOLUME 10.8 fL (7.4-11.4); MONOCYTES # (AUTO) 0.4 10^3/uL (0.0-1.0); MONOCYTES % (AUTO) 7.1 %; NEUTROPHILS % (AUTO) 65.6 %; PLT - PLATELET COUNT 285 10^3/uL (130-450); RED BLOOD COUNT 5.02 10^6/uL (4.70-6.10); RED CELL DISTRIBUTION WIDTH 12.1 % (12.0-15.0); WHITE BLOOD COUNT 6.1 x10^3/uL (4.8-10.8)
[2024-02-09 16:06] LABS: ALBUMIN 4.5 g/dL (3.2-5.5); ALBUMIN/GLOBULIN RATIO 1.7 (1.0-2.2); BILIRUBIN,TOTAL 0.7 mg/dL (0.2-1.0); CALCIUM 10.4 mg/dL (8.5-10.3); CREATININE 0.8 mg/dL (0.6-1.3); TOTAL PROTEIN 7.1 g/dL (6.4-8.9)
[2024-02-09 16:20] LABS: THYROID STIMULATING HORMONE 1.47 uIU/mL (0.34-5.60)
[2024-02-09 16:27] LABS: FERRITIN 221.3 ng/mL (23.9-336.2)
== END 2024-02-09 10:33 | disposition home or self-care (01) ==
LOC: LAB.S 10:32
PROVIDERS: ATTEND Family Medicine
DX: D64.9 Anemia, unspecified (principal); E03.9 Hypothyroidism, unspecified; R53.83 Other fatigue
CPT/HCPCS: 36415; 80053; 82728; 83540; 84439; 84443; 84466; 84480; 84481; 84482; 85025

== ENCOUNTER 2024-04-03 07:06 | Day surgery (SDC) | payer BC ==
[2024-04-03] MEDS: LACTATED RINGERS 1,000 ML IV ONE ×2 (07:40→08:46)
[2024-04-03] MEDS ORDERED: LIDOCAINE-MPF 2% 5 ML VIAL ONE (08:04)
[2024-04-03] MEDS ORDERED: PROPOFOL 200 MG/20 ML VIAL IVP ONE (08:04)
--- NOTE | 2024-04-03 08:22 | ANESTHESIA ---
Pre-Anesthesia VS, & Labs - Diagnosis epigastric pain, hx of ulcers, nsaid use - Procedure EGD Vital Signs: Temp Pulse Resp BP Pulse Ox O2 Flow Rate 36.4 C L 74 16 134/83 H 99 04/03/24 07:15 04/03/24 07:15 04/03/24 07:15 04/03/24 07:15 04/03/24 07:15 Height: 5 ft 8 in Weight (kg): 91.4 kg Body Mass Index: 30.6 BMI Classification: Obese - NPO >8 hours Home Medications and Allergies FLUoxetine [PROzac] 20 mg PO DAILY 10/05/16 Mometasone Furoate [Nasonex] 1 spray NS BID PRN 10/05/16 Albuterol Sulfate [Proair Hfa Inhaler] 1 - 2 puffs INH Q4H PRN 01/05/19 Beclomethasone Dipropionate [Qvar Redihaler (40 mcg)] 2 puffs IH BID 01/05/19 LORazepam [Ativan] 0.5 mg PO ONCE PRN 01/05/19 Liothyronine [Cytomel] 5 mcg PO QDAC 01/05/19 Allergies/Adverse Reactions: Allergies Allergy/AdvReac Type Severity Reaction Status Date / Time latex Allergy swelling Verified 04/12/19 11:07 Anes History & Medical History - Anesthetic History Anesthesia Complications: reports: No previous complications Family history of Anesthesia Complications: Denies Family history of Malignant Hyperthermia: Denies - Medical History Cardiovascular: reports: None Pulmonary: reports: Asthma, Sleep apnea Gastrointestinal: reports: Ulcers, Other Urinary: reports: None Neuro: reports: Other (chronic neck pain) Musculoskeletal: reports: Osteoarthritis, Chronic back pain Endocrine/Autoimmune: reports: HyPOthyroidism Skin: reports: Rosacea Smoking Status: Never smoker Psychosocial: reports: No issues indicated - Surgical History General: reports: Other Orthopedic: reports: Rotator cuff repair, Spine surgery, Other Exam General: Alert, Oriented x3, Cooperative Dental: WNL Mouth Openin Fingerbreadth Neck Mobility: Reduced Mallampati classification: II Thyromental Distance: 4-6 cm Respiratory: Lungs clear Cardiovascular: Regular rate Plan Anesthesia Type: General, Total IV Consent for Procedure(s) Verified and Reviewed: Yes Code Status: Attempt Resuscitation ASA classification: 2-Mild systemic disease Is this case an emergency?: No
[2024-04-03] MEDS ORDERED: MIDAZOLAM 2 MG/2 ML VIAL ONE (08:23)
[2024-04-03] MEDS ORDERED: fentaNYL 100 MCG/2 ML VIAL ONE (08:23)
[2024-04-03 09:02] VITALS: BP 93/53; O2SAT 97
--- NOTE | 2024-04-03 10:17 | ANESTHESIA POST OP EVALUATION ---
Anesthesia Post Eval - Post Anesthesia Eval Vitals: Last Vital Signs Temp 36.5 C 04/03/24 09:00 Pulse 69 04/03/24 09:00 Resp 18 04/03/24 09:00 BP 93/53 L 04/03/24 09:00 Pulse Ox 97 04/03/24 09:00 O2 Flow Rate CV Function Including HR & BP: Stable Pain Control: Satisfactory Nausea & Vomiting: Negative Mental Status: Baseline Respiratory Status: Airway Patent Hydration Status: Satisfactory Anesthesia Complications: None
== END 2024-04-03 07:07 | disposition home or self-care (01) ==
LOC: SDS 07:06
PROVIDERS: ATTEND Surgery
PROC: 0DB78ZX Excision of Stomach, Pylorus, Via Natural or Artificial Opening Endoscopic, Diagnostic (ICD-10-PCS; 2024-04-03)
PROC: 0DB98ZX Excision of Duodenum, Via Natural or Artificial Opening Endoscopic, Diagnostic (ICD-10-PCS; principal; 2024-04-03 08:15)
DX: D50.0 Iron deficiency anemia secondary to blood loss (chronic) (principal); R10.13 Epigastric pain; G47.30 Sleep apnea, unspecified; J45.909 Unspecified asthma, uncomplicated; Z79.1 Long term (current) use of non-steroidal anti-inflammatories (NSAID)
CPT/HCPCS: 43239; J7120

== ENCOUNTER 2024-04-18 08:00 | Outpatient (CLI) | payer BC ==
[2024-04-18 15:48] LABS: ALBUMIN 4.6 g/dL (3.2-5.5); ALBUMIN/GLOBULIN RATIO 1.9 (1.0-2.2); BILIRUBIN,TOTAL 0.6 mg/dL (0.2-1.0); CALCIUM 9.8 mg/dL (8.5-10.3); CREATININE 0.8 mg/dL (0.6-1.3); POTASSIUM 4.1 mmol/L (3.5-4.5)
== END 2024-04-18 23:59 | disposition home or self-care (01) ==
LOC: LAB.S 08:00
PROVIDERS: ATTEND Family Medicine
DX: E83.52 Hypercalcemia (principal); R53.83 Other fatigue
CPT/HCPCS: 36415; 80053; 82330